=== PATIENT | female | born 1945 | race Caucasian/White ===

== ENCOUNTER 2017-09-13 12:20 | Outpatient (CLI) | payer MEDICARE ==
--- NOTE | 2017-09-13 17:43 | MRI ---
MRI CERVICAL SPINE WITHOUT IV CONTRAST: Date: 09-13-17 History: Right upper extremity radiculopathy. Patient is having neck pain which radiates to left richard e of head. Right hand is tingling. FINDINGS: Visualized base of the brain has a normal MRI appearance. There is what appears to be a small Schmorl's node in the superior endplate of the C7 vertebral body . Normal signal is otherwise demonstrated in the bone marrow. C2-3: There is no disc bulge or disc herniation. Central spinal canal and neural foramina are paten t. C3-4: There is a mild broad based disc osteophyte complex which narrows the ventral subarachnoid spa ce. The left neural foramen is patent, but there is moderate to severe right sided neural foraminal narrowing. C4-5: There is slight loss of intervertebral disc height. There is a mild broad based disc osteophyt e complex slightly narrowing the ventral subarachnoid space. Neural foramina are widely patent. C5-6: There is loss of intervertebral disc height. There is a broad based disc osteophyte complex wh ich results in mild narrowing of the central spinal canal. There is moderate right and mild to moder ate left sided neural foraminal narrowing. C6-7: There is loss of intervertebral disc height. There is a broad based disc osteophyte complex. T his narrows the ventral subarachnoid space. Right neural foramen is patent. There is mild left sided neural foraminal narrowing. C7-T1: There is no disc bulge or disc herniation. Central spinal canal and neural foramina appear pa tent. IMPRESSION: 1. Multilevel degenerative changes in the cervical spine. POS: NEVIN
== END 2017-09-13 12:21 | disposition home or self-care (01) ==
LOC: SCSMRI 12:20
PROVIDERS: ATTEND Orthopaedic Surgery
DX: M47.22 Other spondylosis with radiculopathy, cervical region (principal)
CPT/HCPCS: 72141

== ENCOUNTER 2017-11-05 09:36 | Outpatient (CLI) | payer MEDICARE | END 2017-11-05 09:37 | disposition home or self-care (01) | LOC: BICMRI 09:36 | PROVIDERS: ATTEND Podiatrist | DX: M76.71 Peroneal tendinitis, right leg (principal); S86.311A Strain of muscle(s) and tendon(s) of peroneal muscle group at lower leg level, right leg, initial encounter; M65.861 Other synovitis and tenosynovitis, right lower leg; M76.61 Achilles tendinitis, right leg ==

== ENCOUNTER 2019-04-26 06:33 | Outpatient (CLI) | payer MEDICARE ==
[2019-04-26 15:41] LABS: #Basophils 0.1 thou/uL (0.0-0.2); #Eosinphils 0.1 thou/uL (0.0-0.7); #Lymphocytes 2.4 thou/uL (1.20-3.40); #Monocytes 0.8 thou/uL (0.11-0.59); #Neutrophils 4.6 thou/uL (1.40-6.50); %Basophils 0.7 % (0.0-1.0); %Eosinophils 1.6 % (0.0-10.0); %Lymphocytes 30.3 % (21.0-51.0); %Monocytes 9.4 % (0.0-10.0); %Neutrophils 57.9 % (42.0-75.0); Hemoglobin 12.5 g/dL (12.0-16.0); Mean Corpuscular HGB CONC 33.9 g/dL (32.0-36.0); Mean Corpuscular Hemoglobin 32.7 pg (27.0-31.0); Mean Corpuscular Volume 96.6 fL (78.0-98.0); Mean Platelet Volume 9.2 fL (7.4-10.4); Platelet Count 235 thou/uL (130-400); RBC Distribution Width 11.6 % (11.5-14.5); Red Blood Cell (RBC) Count 3.81 mill/uL (4.20-5.40)
[2019-04-26 15:45] LABS: Bilirubin Negative (Negative); Blood, Urine Negative (Negative); Clarity CLEAR (Clear); Glucose, Urine (Dipstick) Negative (Negative); Leukocyte Negative (Negative); Nitrite Negative (Negative); Protein, Urine (Dipstick) Negative (Neg-Trace); Specific Gravity, Urine 1.021 (1.002-1.036); Urobilinogen 0.2 mg/dL (0.2-1.0); pH, Urine 6.5 (5.0-9.0)
[2019-04-26 16:09] LABS: Anion Gap 13 mmol/L (10-20); BUN (Urea Nitrogen) 29 mg/dL (9.8-20.1); Calc. Creatinine Clearance 0 mL/min (70-130); Calcium 10.5 mg/dL (7.8-10.44); Carbon Dioxide 28 mmol/L (23-31); Chloride 102 mmol/L (98-107); Estimated GFR-MDRD 34; Glucose 105 mg/dL (83-110); Potassium 3.3 mmol/L (3.5-5.1); Sodium 140 mmol/L (136-145)
[2019-04-26 17:12] LABS: Bacteria/HPF None Seen HPF (None Seen); Hyaline Casts/LPF NONE SEEN LPF (0-3 Hyaline); RBC/HPF None Seen HPF (0-3); Renal Epithelial None Seen HPF (0-3); Squamous Epithelial 0-3 HPF (0-3); Transitional Epithelial 0-3 HPF (0-3); WBC/HPF 0-3 HPF (0-3)
== END 2019-04-26 06:34 | disposition home or self-care (01) ==
LOC: LABBT 06:33
PROVIDERS: ATTEND Orthopaedic Surgery
DX: Z01.818 Encounter for other preprocedural examination (principal); T84.090A Other mechanical complication of internal right hip prosthesis, initial encounter
CPT/HCPCS: 80048; 81001; 85025; 93005; 93010

== ENCOUNTER 2019-04-26 14:00 | Inpatient (IN) | payer MEDICARE ==
[2019-04-26 14:24] VITALS: BMI 26.8
[2019-05-04] MEDS ORDERED: Fentanyl 100 MCG/2 ML VIAL ONE (06:28)
[2019-05-04] MEDS ORDERED: Midazolam HCl 2 mg/2 ml Vial ONE (06:28)
[2019-05-04] MEDS ORDERED: Lidocaine 1% (PF) 30 ML VIAL ONE (06:28)
[2019-05-04] MEDS ORDERED: Gentamicin Sulfate 120 MG in Premix Bag 1 BAG IVPB SCH (06:30)
[2019-05-04] MEDS ORDERED: Vancomycin HCl 1 GM in Premix Bag 1 BAG IVPB SCH ×2 (06:30→18:00)
[2019-05-04] MEDS ORDERED: Scopolamine 1.5 mg/72 hour Patch ONE (06:44)
[2019-05-04] MEDS ORDERED: Tranexamic Acid 1,000 MG/10 ML VIAL ONE (06:47)
[2019-05-04] MEDS ORDERED: diphenhydrAMINE 25 MG CAP PO PRN (06:47)
[2019-05-04] MEDS ORDERED: Zolpidem Tartrate 5 MG TAB PO PRN ×2 (06:47→07:45)
[2019-05-04] MEDS ORDERED: Ondansetron PF 4 MG/2 ML Vial IVP PRN (06:47)
[2019-05-04] MEDS ORDERED: Sodium Chloride 0.9% 100 ML ONE (06:47)
[2019-05-04] MEDS ORDERED: Acetaminophen 325 MG TAB PO PRN (06:47)
[2019-05-04] MEDS ORDERED: traMADol HCl 50 MG TAB PO PRN ×2 (06:47→07:45)
[2019-05-04] MEDS ORDERED: Promethazine HCl 25 MG/ML VIAL IM PRN ×3 (06:47→08:25)
[2019-05-04] MEDS ORDERED: Bupivacaine/Epinephrine 0.25% 30 ML VIAL ONE (07:31)
[2019-05-04] MEDS ORDERED: Naloxone HCl 0.4 mg/ml Vial IV PRN (07:45)
[2019-05-04] MEDS ORDERED: diphenhydrAMINE 50 MG/ML VIAL IVP PRN (07:45)
[2019-05-04] MEDS ORDERED: Promethazine HCl 25 MG SUPP PR PRN (07:45)
[2019-05-04] MEDS ORDERED: diphenhydrAMINE 50 MG/ML VIAL IM PRN (07:45)
[2019-05-04] MEDS ORDERED: fentaNYL Citrate/PF 500 MCG, Bupivacaine 10 ML in Sodium Chloride 0.9% 80 ML EPIDURAL SCH (07:45)
[2019-05-04] MEDS ORDERED: Bupivacaine 0.25% 10 ML VIAL EPIDURAL PRN (07:45)
[2019-05-04] MEDS ORDERED: Hydrocerin (Eucerin) Cream 120 gm Jar TOP PRN (07:45)
[2019-05-04] MEDS ORDERED: Naloxone HCl 0.4 mg/ml Vial IVP PRN (07:45)
[2019-05-04] MEDS ORDERED: Ondansetron HCl/PF 4 MG/2 ML Vial IVP PRN (08:25)
[2019-05-04] MEDS ORDERED: Promethazine HCl 25 MG/ML VIAL SLOW IVP PRN (08:25)
[2019-05-04] MEDS ORDERED: PACU-Morphine 4MG/ML VIAL SLOW IVP PRN (08:25)
[2019-05-04] MEDS ORDERED: Hydrochlorothiazide 25 MG TAB PO SCH (09:00)
[2019-05-04] MEDS ORDERED: Bupivacaine 10 ML in Sodium Chloride 0.9% 90 ML EPIDURAL SCH ×2 (11:30→17:30)
--- NOTE | 2019-05-04 12:49 | OP ---
DATE OF PROCEDURE: 05/04/2019 PROCEDURE PERFORMED: Right revision total hip arthroplasty using a Yudith E-liner MDM head, a roman catholic modular head and neck replacement body size 19 with a 14 mm x 155 mm stem. DYNAMITER: Michael Hudson MD ESTIMATED BLOOD LOSS: 400 mL. SPECIMEN: None. DRAIN: None. COMPLICATIONS: None. DESCRIPTION OF PROCEDURE: The patient was taken to the operating room, where general anesthesia was induced, placed in left lateral decubitus position. Right hip was prepped and draped in sterile fashion. She received vancomycin and gentamicin preoperatively. I opened up her old surgical scar extended proximally. I started with a small one. I tried to extract the stent without making a trochanteric osteotomy. I spent a fairly good amount of time, but this unfortunately had failed. I created a trochanteric osteotomy and removed the stem, I removed the cement distally with Calamus revision instruments. I reamed distally up to 14 mm, this allowed me to seat a 14 mm roman catholic modular stem. I then placed the body on. I rebuilt the proximal femur around this body. I did place one prophylactic cable at the area of the osteotomy, so that I would not extend any fracture below that cable. The remainder of the fragments were cabled back to the proximal body. The acetabular liner was removed. The acetabulum was inspected. I placed an E-liner for the MDM in the acetabulum. I used a +20 body with a +5 ceramic head on the femur. This gave good stability throughout range of motion. After the osteotomy was repaired, I repaired the abductors back about the anterior one-third using Ethibond suture through bone and reinforced with Vicryl suture Vicryl. IT band was closed with #2 Vicryl and #2 Quill. Subcutaneous was closed with 0 Quill, and skin was closed with 2-0 Monoderm. Job ID: [id number]
--- NOTE | 2019-05-04 13:36 | RAD ---
2 VIEWS RIGHT HIP: Date: 05/04/19 COMPARISON: 08/01/09. HISTORY: Status post right hip arthroplasty. FINDINGS: 2 views of the right hip show the patient to be status post revision of right hip arthroplasty withou t perihardware lucency or fracture. Air I the soft tissues is from recent surgery. IMPRESSION: Status post right hip arthroplasty without evidence of complication. POS: TPC
[2019-05-04] MEDS: Sodium Chloride 0.9% 1,000 ML IV SCH ×2 (14:13→16:41)
[2019-05-04] MEDS: Aspirin 81 mg Enteric Coated Tablet PO SCH ×2 (14:14→20:24)
[2019-05-04] MEDS: Lisinopril 10 MG TAB PO SCH ×2 (14:14→20:24)
[2019-05-04] MEDS: Fluticasone Propionate Nasal Spray 16 gm Bottle NASAL SCH (14:14)
[2019-05-04] MEDS: Acetaminophen 500 MG TAB PO SCH ×3 (14:14→23:48)
[2019-05-04] MEDS: Loratadine 10 MG TAB PO SCH (14:14)
[2019-05-04] MEDS: traMADol HCl 50 MG TAB PO PRN ×2 (14:18→20:24)
--- NOTE | 2019-05-04 19:16 | PDOC.PN ---
- Subjective Encounter Start Date: 05/04/19 Encounter Start Time: 19:16 Patient seen and examined for med mngt. Follows Dr Yan in [place]. No CP/ SOB. Pain controlled. No fever/chills. No other complaints. No overnight events - Objective MAR Reviewed: Yes Vital Signs & Weight: Vital Signs (12 hours) Temp Pulse Resp BP Pulse Ox 05/04/19 13:30 97.3 F L 70 16 105/54 L 98 Weight Weight 161 lb I&O: 05/03/19 05/04/19 05/05/19 06:59 06:59 06:59 Intake Total 900 Output Total 300 Balance 600 Result Diagrams: 05/05/19 05:24 EKG Reviewed by me: Yes (SR) Phys Exam - Physical Examination Constitutional: NAD Respiratory: no wheezing, no rhonchi Cardiovascular: RRR, no rub Gastrointestinal: soft, non-tender, positive bowel sounds Musculoskeletal: no edema Neurological: moves all 4 limbs Dx/Plan - Plan DVT proph w/SCDs IMPRESSION: HTN Seasonal allergies CKD 3 Hypokalemia PLAN: Hold Lisinopril/HCTZ BMP in AM Cont Flonase Add PRN BP meds Full code. DPOA - spouse Review of Systems - Review of Systems Respiratory: negative: Cough, Dry, Shortness of Breath, Hemoptysis, SOB with Excertion, Pleuritic Pain, Sputum, Wheezing Cardiovascular: negative: chest pain, palpitations, orthopnea, paroxysmal nocturnal dyspnea, edema, light headedness, other - Medications/Allergies Allergies/Adverse Reactions: Allergies Allergy/AdvReac Type Severity Reaction Status Date / Time ciprofloxacin [From Cipro] Allergy Verified 04/26/19 14:26 fentanyl Allergy Verified 04/26/19 14:26 hydrocodone Allergy Verified 04/26/19 14:26 levofloxacin [From Levaquin] Allergy Verified 04/26/19 14:26 Penicillins Allergy Verified 04/26/19 14:26 Medications: Current Medications Acetaminophen (Tylenol) 1,000 mg PO Q6HR [facility] Last Admin: 05/04/19 18:05 Dose: 1,000 mg Aspirin (Ecotrin) 81 mg PO BID [facility] Last Admin: 05/04/19 14:14 Dose: Not Given Bupivacaine HCl (Marcaine) 5 ml EPIDURAL ONE PRN PRN Reason: UNCONTROLLED PAIN Stop: 05/07/19 07:46 Diphenhydramine HCl (Benadryl) 25 mg PO Q3H PRN PRN Reason: Itching Diphenhydramine HCl (Benadryl) 25 mg IM Q3H PRN PRN Reason: Itching Diphenhydramine HCl (Benadryl) 25 mg IVP Q3H PRN PRN Reason: Itching Emollient Cream (Hydrocerin Cream) 0 gm TOP PRN PRN PRN Reason: Itching Ferrous Gluconate (Fergon) 324 mg PO BID[facility] Fluticasone Propionate (Flonase Nasal [place]) 0 gm NASAL DAILY [facility] Last Admin: 05/04/19 14:14 Dose: Not Given Hydrochlorothiazide (Hydrochlorothiazide) 12.5 mg PO DAILY [facility] Last Admin: 05/04/19 14:14 Dose: Not Given Sodium Chloride (Normal Saline 0.9%) 1,000 mls @ 100 mls/hr IV .Q10H [facility] Last Admin: 05/04/19 16:41 Dose: Not Given Vancomycin HCl 1 gm/ Device 200 mls @ 200 mls/hr IVPB 1800 [facility] Stop: 05/04/19 21:00 Last Admin: 05/04/19 18:04 Dose: 200 mls Bupivacaine HCl 10 ml/ Sodium (Chloride) 100 mls @ 8 mls/hr EPIDURAL INF [facility] Iron/Minerals/Multivitamins (Theragran M) 1 tab PO DAILY [facility] Lisinopril (Zestril) 10 mg PO BID [facility] Last Admin: 05/04/19 14:14 Dose: Not Given Loratadine (Claritin) 10 mg PO DAILY [facility] Last Admin: 05/04/19 14:14 Dose: Not Given Miscellaneous Information (Communication Order-Pharmacy) 1 each FS ASDIR [facility] Naloxone HCl (Narcan) 0.2 mg IV Q5MIN PRN PRN Reason: RR <=8 OR OBTUNDED/UNAROUSABLE Naloxone HCl (Narcan) 0.1 mg IVP Q15MIN PRN PRN Reason: URINARY RETENTION Ondansetron HCl (Zofran) 4 mg IVP Q6H PRN PRN Reason: Nausea/Vomiting Promethazine HCl (Phenergan) 12.5 mg IM Q4H PRN PRN Reason: Nausea Promethazine HCl (Phenergan Suppository) 25 mg IN Q4H PRN PRN Reason: Nausea/Vomiting Senna/Docusate Sodium (Senokot S) 2 tab PO BID [facility] Sodium Chloride (Flush - Normal Saline) 10 ml IVF PRN PRN PRN Reason: Saline Flush Tramadol HCl (Ultram) 50 mg PO Q6H PRN PRN Reason: Mild Pain 1-3 Tramadol HCl (Ultram) 100 mg PO Q6H PRN PRN Reason: Moderate Pain 4-6 Last Admin: 05/04/19 14:18 Dose: 100 mg Zolpidem Tartrate (Ambien) 5 mg PO HSPRN PRN PRN Reason: Insomnia
[2019-05-04] MEDS: Fentanyl 5 mcg/Bup 0.075% Cadd 100 ML EPIDURAL SCH (23:49)
[2019-05-05] MEDS: Sodium Chloride 0.9% 1,000 ML IV SCH ×2 (04:35→14:20)
[2019-05-05] MEDS: Ondansetron PF 4 MG/2 ML Vial IVP PRN ×2 (05:09→21:12)
[2019-05-05] MEDS: traMADol HCl 50 MG TAB PO PRN ×2 (05:15→21:08)
[2019-05-05] MEDS: Acetaminophen 500 MG TAB PO SCH ×3 (05:55→18:57)
[2019-05-05 05:58] LABS: Hemoglobin 9.7 g/dL (12.0-16.0); Mean Corpuscular HGB CONC 33.6 g/dL (32.0-36.0); Mean Corpuscular Hemoglobin 32.8 pg (27.0-31.0); Mean Corpuscular Volume 97.5 fL (78.0-98.0); Mean Platelet Volume 9.2 fL (7.4-10.4); Platelet Count 196 thou/uL (130-400); RBC Distribution Width 11.6 % (11.5-14.5); Red Blood Cell (RBC) Count 2.97 mill/uL (4.20-5.40); White Blood Cell (WBC) Count 10.3 thou/uL (4.8-10.8)
[2019-05-05] MEDS ORDERED: Polyethylene Glycol 3350 17 GM Packet PO PRN (07:46)
[2019-05-05 08:27] LABS: Anion Gap 10 mmol/L (10-20); BUN (Urea Nitrogen) 21 mg/dL (9.8-20.1); Calc. Creatinine Clearance 59 mL/min (70-130); Calcium 8.7 mg/dL (7.8-10.44); Carbon Dioxide 25 mmol/L (23-31); Chloride 102 mmol/L (98-107); Estimated GFR-MDRD 55; Glucose 118 mg/dL (83-110); Magnesium 1.6 mg/dL (1.6-2.6); Potassium 3.6 mmol/L (3.5-5.1); Sodium 133 mmol/L (136-145)
[2019-05-05] MEDS ORDERED: Amlodipine 5 MG TAB PO SCH (09:00)
[2019-05-05] MEDS: Multivitamin W/ Minerals 1 TAB PO SCH (09:55)
[2019-05-05] MEDS ORDERED: Lisinopril 10 MG TAB PO SCH ×2 (10:03→10:15)
[2019-05-05] MEDS ORDERED: Hydrochlorothiazide 25 MG TAB PO SCH ×3 (10:03→12:30)
[2019-05-05] MEDS: Fluticasone Propionate Nasal Spray 16 gm Bottle NASAL SCH (10:14)
[2019-05-05] MEDS: Aspirin 81 mg Enteric Coated Tablet PO SCH ×2 (10:15→21:09)
[2019-05-05] MEDS: Ferrous Gluconate 324 MG TAB PO SCH ×2 (10:15→18:57)
[2019-05-05] MEDS: Loratadine 10 MG TAB PO SCH (10:16)
[2019-05-05] MEDS: Hydrochlorothiazide 25 MG TAB PO SCH (12:35)
[2019-05-05] MEDS: Fentanyl 5 mcg/Bup 0.075% Cadd 100 ML EPIDURAL SCH (14:07)
[2019-05-05] MEDS: Lisinopril 10 MG TAB PO SCH (21:08)
[2019-05-05] MEDS: Magnesium Chloride 64 MG TAB PO SCH (21:09)
[2019-05-06] MEDS: Sodium Chloride 0.9% 1,000 ML IV SCH ×3 (01:06→22:36)
[2019-05-06] MEDS: Acetaminophen 500 MG TAB PO SCH ×4 (01:06→18:35)
[2019-05-06] MEDS: diphenhydrAMINE 25 MG CAP PO PRN ×2 (02:46→09:45)
[2019-05-06] MEDS: Fentanyl 5 mcg/Bup 0.075% Cadd 100 ML EPIDURAL SCH ×2 (02:47→15:39)
[2019-05-06 05:34] LABS: Hemoglobin 9.6 g/dL (12.0-16.0); Mean Corpuscular Hemoglobin 33.6 pg (27.0-31.0); Mean Corpuscular Volume 98.6 fL (78.0-98.0); Mean Platelet Volume 10.1 fL (7.4-10.4); Platelet Count 158 thou/uL (130-400); RBC Distribution Width 11.6 % (11.5-14.5); Red Blood Cell (RBC) Count 2.86 mill/uL (4.20-5.40); White Blood Cell (WBC) Count 14.3 thou/uL (4.8-10.8)
[2019-05-06] MEDS: Ferrous Gluconate 324 MG TAB PO SCH ×2 (08:05→18:35)
[2019-05-06] MEDS: Hydrochlorothiazide 25 MG TAB PO SCH (08:05)
[2019-05-06] MEDS: Loratadine 10 MG TAB PO SCH (08:05)
[2019-05-06] MEDS: Multivitamin W/ Minerals 1 TAB PO SCH (08:06)
[2019-05-06] MEDS: Aspirin 81 mg Enteric Coated Tablet PO SCH ×2 (08:07→21:23)
[2019-05-06] MEDS: Magnesium Chloride 64 MG TAB PO SCH ×2 (08:08→21:23)
[2019-05-06] MEDS: Lisinopril 10 MG TAB PO SCH ×2 (08:14→21:23)
[2019-05-06] MEDS: Fluticasone Propionate Nasal Spray 16 gm Bottle NASAL SCH (12:01)
--- NOTE | 2019-05-06 18:46 | PDOC.PN ---
- Subjective Encounter Start Date: 05/06/19 Encounter Start Time: 10:20 Pt seen for followup re: hypertension. Slept well, no complaints. - Objective Vital Signs & Weight: Vital Signs (12 hours) Temp Pulse Resp BP BP Pulse Ox 05/06/19 15:40 98.8 F 83 16 137/70 94 L 05/06/19 12:15 98.4 F 82 12 122/69 93 L 05/06/19 08:35 98.7 F 79 12 134/69 94 L 05/06/19 08:14 150/77 H 94 L Weight Weight 161 lb I&O: 05/05/19 05/06/19 05/07/19 06:59 06:59 06:59 Intake Total 2140 1320 Output Total 950 650 Balance 1190 670 Result Diagrams: 05/06/19 04:25 05/05/19 07:57 Phys Exam - Physical Examination Constitutional: NAD HEENT: moist MMs Neck: supple Respiratory: clear to auscultation bilateral Cardiovascular: RRR Gastrointestinal: soft Neurological: moves all 4 limbs Psychiatric: normal affect Dx/Plan (1) Hyponatremia Code(s): E87.1 - HYPO-OSMOLALITY AND HYPONATREMIA Status: Acute Comment: mild, likely asymptomatic (2) Hypertension Code(s): I10 - ESSENTIAL (PRIMARY) HYPERTENSION Status: Chronic Comment: controlled (3) Chronic kidney disease, stage 3 Code(s): N18.3 - CHRONIC KIDNEY DISEASE, STAGE 3 (MODERATE) Status: Chronic Comment: stable - Plan * . Review of Systems - Review of Systems Cardiovascular: negative: chest pain, palpitations, orthopnea, paroxysmal nocturnal dyspnea, edema, light headedness Gastrointestinal: negative: Nausea, Vomiting, Abdominal Pain, Diarrhea, Constipation, Melena, Hematochezia - Medications/Allergies Allergies/Adverse Reactions: Allergies Allergy/AdvReac Type Severity Reaction Status Date / Time ciprofloxacin [From Cipro] Allergy Verified 04/26/19 14:26 fentanyl Allergy Verified 04/26/19 14:26 hydrocodone Allergy Verified 04/26/19 14:26 levofloxacin [From Levaquin] Allergy Verified 04/26/19 14:26 Penicillins Allergy Verified 04/26/19 14:26 Medications: Current Medications Acetaminophen (Tylenol) 1,000 mg PO Q6HR [facility] Last Admin: 05/06/19 18:35 Dose: 1,000 mg Aspirin (Ecotrin) 81 mg PO BID [facility] Last Admin: 05/06/19 08:07 Dose: 81 mg Bupivacaine HCl (Marcaine) 5 ml EPIDURAL ONE PRN PRN Reason: UNCONTROLLED PAIN Stop: 05/07/19 07:46 Diphenhydramine HCl (Benadryl) 25 mg PO Q3H PRN PRN Reason: Itching Last Admin: 05/06/19 09:45 Dose: 25 mg Diphenhydramine HCl (Benadryl) 25 mg IM Q3H PRN PRN Reason: Itching Diphenhydramine HCl (Benadryl) 25 mg IVP Q3H PRN PRN Reason: Itching Emollient Cream (Hydrocerin Cream) 0 gm TOP PRN PRN PRN Reason: Itching Ferrous Gluconate (Fergon) 324 mg PO BID[facility] Last Admin: 05/06/19 18:35 Dose: 324 mg Fluticasone Propionate (Flonase Nasal [place]) 0 gm NASAL DAILY [facility] Last Admin: 05/06/19 12:01 Dose: 2 spray Hydrochlorothiazide (Hydrochlorothiazide) 12.5 mg PO DAILY [facility] Last Admin: 05/06/19 08:05 Dose: 12.5 mg Sodium Chloride (Normal Saline 0.9%) 1,000 mls @ 100 mls/hr IV .Q10H [facility] Last Admin: 05/06/19 08:03 Dose: 1,000 mls Fentanyl Citrate (Fentanyl/Bupivacaine) 100 mls @ 8 mls/hr EPIDURAL INF [facility] Last Admin: 05/06/19 15:39 Dose: 100 mls Iron/Minerals/Multivitamins (Theragran M) 1 tab PO DAILY [facility] Last Admin: 05/06/19 08:06 Dose: 1 tab Lisinopril (Zestril) 10 mg PO BID [facility] Last Admin: 05/06/19 08:14 Dose: 10 mg Loratadine (Claritin) 10 mg PO DAILY [facility] Last Admin: 05/06/19 08:05 Dose: 10 mg Magnesium Chloride (Slow-Mag) 64 mg PO BID [facility] Last Admin: 05/06/19 08:08 Dose: 64 mg Miscellaneous Information (Communication Order-Pharmacy) 1 each FS ASDIR [facility] Naloxone HCl (Narcan) 0.2 mg IV Q5MIN PRN PRN Reason: RR <=8 OR OBTUNDED/UNAROUSABLE Naloxone HCl (Narcan) 0.1 mg IVP Q15MIN PRN PRN Reason: URINARY RETENTION Ondansetron HCl (Zofran) 4 mg IVP Q6H PRN PRN Reason: Nausea/Vomiting Last Admin: 05/05/19 21:12 Dose: 4 mg Polyethylene Glycol (Miralax) 17 gm PO DAILY PRN PRN Reason: Constipation Last Admin: 05/05/19 21:40 Dose: 17 gm Promethazine HCl (Phenergan) 12.5 mg IM Q4H PRN PRN Reason: Nausea Last Admin: 05/05/19 10:12 Dose: 12.5 mg Promethazine HCl (Phenergan Suppository) 25 mg HI Q4H PRN PRN Reason: Nausea/Vomiting Senna/Docusate Sodium (Senokot S) 2 tab PO BID [facility] Sodium Chloride (Flush - Normal Saline) 10 ml IVF PRN PRN PRN Reason: Saline Flush Tramadol HCl (Ultram) 50 mg PO Q6H PRN PRN Reason: Mild Pain 1-3 Tramadol HCl (Ultram) 100 mg PO Q6H PRN PRN Reason: Moderate Pain 4-6 Last Admin: 05/05/19 21:08 Dose: 100 mg Zolpidem Tartrate (Ambien) 5 mg PO HSPRN PRN PRN Reason: Insomnia
[2019-05-06] MEDS: traMADol HCl 50 MG TAB PO PRN (21:24)
[2019-05-06] MEDS ORDERED: Senokot S 8.6-50 MG TAB PO SCH (21:45)
[2019-05-07] MEDS: Acetaminophen 500 MG TAB PO SCH ×2 (00:17→05:04)
[2019-05-07] MEDS: Fentanyl 5 mcg/Bup 0.075% Cadd 100 ML EPIDURAL SCH (04:51)
[2019-05-07 05:29] LABS: Mean Corpuscular Hemoglobin 32.8 pg (27.0-31.0); Mean Corpuscular Volume 99.2 fL (78.0-98.0); Mean Platelet Volume 8.6 fL (7.4-10.4); Platelet Count 185 thou/uL (130-400); RBC Distribution Width 11.6 % (11.5-14.5); Red Blood Cell (RBC) Count 2.74 mill/uL (4.20-5.40); White Blood Cell (WBC) Count 9.9 thou/uL (4.8-10.8)
[2019-05-07] MEDS: Sodium Chloride 0.9% 1,000 ML IV SCH ×2 (05:53→16:09)
[2019-05-07] MEDS: Hydrochlorothiazide 25 MG TAB PO SCH (08:41)
[2019-05-07] MEDS: Lisinopril 10 MG TAB PO SCH ×2 (08:41→20:30)
[2019-05-07] MEDS: Aspirin 81 mg Enteric Coated Tablet PO SCH ×2 (08:41→20:29)
[2019-05-07] MEDS: Loratadine 10 MG TAB PO SCH (08:41)
[2019-05-07] MEDS: Fluticasone Propionate Nasal Spray 16 gm Bottle NASAL SCH (08:41)
[2019-05-07] MEDS: Ferrous Gluconate 324 MG TAB PO SCH ×2 (08:41→17:21)
[2019-05-07] MEDS: Magnesium Chloride 64 MG TAB PO SCH ×2 (08:41→20:31)
[2019-05-07] MEDS: Senokot S 8.6-50 MG TAB PO SCH ×2 (08:42→20:29)
[2019-05-07] MEDS: Multivitamin W/ Minerals 1 TAB PO SCH (08:45)
[2019-05-07] MEDS ORDERED: Acetaminophen/Codeine 30-300mg Tablet PO PRN (10:12)
[2019-05-07] MEDS: Acetaminophen/Codeine 30-300mg Tablet PO PRN ×2 (11:27→15:33)
[2019-05-07] MEDS: traMADol HCl 50 MG TAB PO PRN (14:38)
--- NOTE | 2019-05-07 16:54 | PDOC.PN ---
- Subjective Encounter Start Date: 05/07/19 Encounter Start Time: 10:00 Pt seen for followup re: hypertension. No complaints. - Objective Vital Signs & Weight: Vital Signs (12 hours) Temp Pulse Resp BP BP Pulse Ox 05/07/19 15:14 98.9 F 84 16 147/71 H 93 L 05/07/19 10:53 98.4 F 87 16 125/68 05/07/19 07:44 98.6 F 75 16 120/68 94 L Weight Weight 161 lb I&O: 05/06/19 05/07/19 05/08/19 06:59 06:59 06:59 Intake Total 1320 450 360 Output Total 650 1500 Balance 670 -1050 360 Result Diagrams: 05/07/19 05:12 05/05/19 07:57 Phys Exam - Physical Examination Constitutional: NAD HEENT: sclera anicteric Neck: no JVD Respiratory: clear to auscultation bilateral Cardiovascular: RRR, no rub Gastrointestinal: soft Neurological: moves all 4 limbs Psychiatric: normal affect Dx/Plan (1) Hypertension Code(s): I10 - ESSENTIAL (PRIMARY) HYPERTENSION Status: Chronic Comment: controlled (2) Chronic kidney disease, stage 3 Code(s): N18.3 - CHRONIC KIDNEY DISEASE, STAGE 3 (MODERATE) Status: Chronic Comment: stable - Plan * . Review of Systems - Review of Systems Cardiovascular: negative: chest pain, palpitations, orthopnea, paroxysmal nocturnal dyspnea, edema, light headedness Gastrointestinal: negative: Nausea, Vomiting, Abdominal Pain, Diarrhea, Constipation, Melena, Hematochezia - Medications/Allergies Allergies/Adverse Reactions: Allergies Allergy/AdvReac Type Severity Reaction Status Date / Time ciprofloxacin [From Cipro] Allergy Verified 04/26/19 14:26 fentanyl Allergy Verified 04/26/19 14:26 hydrocodone Allergy Verified 04/26/19 14:26 levofloxacin [From Levaquin] Allergy Verified 04/26/19 14:26 Penicillins Allergy Verified 04/26/19 14:26 Medications: Current Medications Acetaminophen/Codeine Phosphate (Tylenol #3) 1 tab PO Q4H PRN PRN Reason: Mild Pain (1-3) Acetaminophen/Codeine Phosphate (Tylenol #3) 2 tab PO Q4H PRN PRN Reason: Moderate Pain (4-6) Last Admin: 05/07/19 15:33 Dose: 2 tab Aspirin (Ecotrin) 81 mg PO BID [facility] Last Admin: 05/07/19 08:41 Dose: 81 mg Celecoxib (Celebrex) 200 mg PO BID [facility] Diphenhydramine HCl (Benadryl) 25 mg PO Q3H PRN PRN Reason: Itching Last Admin: 05/06/19 09:45 Dose: 25 mg Diphenhydramine HCl (Benadryl) 25 mg IM Q3H PRN PRN Reason: Itching Diphenhydramine HCl (Benadryl) 25 mg IVP Q3H PRN PRN Reason: Itching Emollient Cream (Hydrocerin Cream) 0 gm TOP PRN PRN PRN Reason: Itching Ferrous Gluconate (Fergon) 324 mg PO BID[facility] Last Admin: 05/07/19 08:41 Dose: 324 mg Fluticasone Propionate (Flonase Nasal [place]) 0 gm NASAL DAILY [facility] Last Admin: 05/07/19 08:41 Dose: 2 spray Hydrochlorothiazide (Hydrochlorothiazide) 12.5 mg PO DAILY [facility] Last Admin: 05/07/19 08:41 Dose: 12.5 mg Sodium Chloride (Normal Saline 0.9%) 1,000 mls @ 100 mls/hr IV .Q10H [facility] Last Admin: 05/07/19 16:09 Dose: Not Given Fentanyl Citrate (Fentanyl/Bupivacaine) 100 mls @ 8 mls/hr EPIDURAL INF [facility] Last Admin: 05/07/19 04:51 Dose: 100 mls Iron/Minerals/Multivitamins (Theragran M) 1 tab PO DAILY [facility] Last Admin: 05/07/19 08:45 Dose: 1 tab Lisinopril (Zestril) 10 mg PO BID [facility] Last Admin: 05/07/19 08:41 Dose: 10 mg Loratadine (Claritin) 10 mg PO DAILY [facility] Last Admin: 05/07/19 08:41 Dose: 10 mg Magnesium Chloride (Slow-Mag) 64 mg PO BID [facility] Last Admin: 05/07/19 08:41 Dose: 64 mg Miscellaneous Information (Communication Order-Pharmacy) 1 each FS ASDIR [facility] Naloxone HCl (Narcan) 0.2 mg IV Q5MIN PRN PRN Reason: RR <=8 OR OBTUNDED/UNAROUSABLE Naloxone HCl (Narcan) 0.1 mg IVP Q15MIN PRN PRN Reason: URINARY RETENTION Ondansetron HCl (Zofran) 4 mg IVP Q6H PRN PRN Reason: Nausea/Vomiting Last Admin: 05/05/19 21:12 Dose: 4 mg Polyethylene Glycol (Miralax) 17 gm PO DAILY PRN PRN Reason: Constipation Last Admin: 05/05/19 21:40 Dose: 17 gm Promethazine HCl (Phenergan) 12.5 mg IM Q4H PRN PRN Reason: Nausea Last Admin: 05/05/19 10:12 Dose: 12.5 mg Promethazine HCl (Phenergan Suppository) 25 mg CO Q4H PRN PRN Reason: Nausea/Vomiting Senna/Docusate Sodium (Senokot S) 2 tab PO BID [facility] Last Admin: 05/07/19 08:42 Dose: 2 tab Sodium Chloride (Flush - Normal Saline) 10 ml IVF PRN PRN PRN Reason: Saline Flush Tramadol HCl (Ultram) 50 mg PO Q6H PRN PRN Reason: Mild Pain 1-3 Tramadol HCl (Ultram) 100 mg PO Q6H PRN PRN Reason: Moderate Pain 4-6 Last Admin: 05/07/19 14:38 Dose: 100 mg Zolpidem Tartrate (Ambien) 5 mg PO HSPRN PRN PRN Reason: Insomnia
[2019-05-07] MEDS: diphenhydrAMINE 25 MG CAP PO PRN (20:28)
[2019-05-07] MEDS: CeleCOXIB 100 MG CAP PO SCH (20:29)
[2019-05-08] MEDS: Sodium Chloride 0.9% 1,000 ML IV SCH ×2 (03:09→11:24)
[2019-05-08] MEDS: traMADol HCl 50 MG TAB PO PRN ×2 (03:21→14:31)
[2019-05-08 05:27] LABS: Hemoglobin 9.4 g/dL (12.0-16.0); Mean Corpuscular HGB CONC 33.1 g/dL (32.0-36.0); Mean Corpuscular Volume 99.8 fL (78.0-98.0); Mean Platelet Volume 8.4 fL (7.4-10.4); Platelet Count 245 thou/uL (130-400); RBC Distribution Width 11.7 % (11.5-14.5); Red Blood Cell (RBC) Count 2.86 mill/uL (4.20-5.40); White Blood Cell (WBC) Count 9.4 thou/uL (4.8-10.8)
[2019-05-08] MEDS: Hydrochlorothiazide 25 MG TAB PO SCH (08:16)
[2019-05-08] MEDS: Aspirin 81 mg Enteric Coated Tablet PO SCH (08:17)
[2019-05-08] MEDS: CeleCOXIB 100 MG CAP PO SCH (08:17)
[2019-05-08] MEDS: Lisinopril 10 MG TAB PO SCH (08:17)
[2019-05-08] MEDS: Loratadine 10 MG TAB PO SCH (08:17)
[2019-05-08] MEDS: Senokot S 8.6-50 MG TAB PO SCH (08:18)
[2019-05-08] MEDS: Ferrous Gluconate 324 MG TAB PO SCH (08:18)
[2019-05-08] MEDS: Magnesium Chloride 64 MG TAB PO SCH (08:19)
[2019-05-08] MEDS: Multivitamin W/ Minerals 1 TAB PO SCH (08:19)
[2019-05-08] MEDS: Fluticasone Propionate Nasal Spray 16 gm Bottle NASAL SCH (08:21)
[2019-05-08] MEDS: Ondansetron PF 4 MG/2 ML Vial IVP PRN (10:06)
[2019-05-08 15:33] VITALS: BP 150/75; TEMP 98.8
[2019-05-15] MEDS ORDERED: Senokot S 8.6-50 MG TAB PO SCH (09:00)
== END 2019-05-08 16:20 | disposition home or self-care (01) | DRG 467 ==
LOC: SJJU 05-04 05:47 → SURG A 05-04 13:09
PROVIDERS: ADMIT Orthopaedic Surgery; ATTEND Orthopaedic Surgery
PROC: 0SR90JZ Replacement of Right Hip Joint with Synthetic Substitute, Open Approach (ICD-10-PCS; principal; 2019-05-04)
PROC: 0SP90JZ Removal of Synthetic Substitute from Right Hip Joint, Open Approach (ICD-10-PCS; 2019-05-04)
DX: T84.010A Broken internal right hip prosthesis, initial encounter (principal); E87.1 Hypo-osmolality and hyponatremia; I12.9 Hypertensive chronic kidney disease with stage 1 through stage 4 chronic kidney disease, or unspecified chronic kidney disease; N18.3 Chronic kidney disease, stage 3 (moderate); J30.2 Other seasonal allergic rhinitis; Z96.641 Presence of right artificial hip joint; E87.6 Hypokalemia; Z90.49 Acquired absence of other specified parts of digestive tract; Z79.899 Other long term (current) drug therapy; Z88.0 Allergy status to penicillin; Z88.8 Allergy status to other drugs, medicaments and biological substances; Z88.1 Allergy status to other antibiotic agents
CPT/HCPCS: 36415; 80048; 83735; 85027; 86850; 86900; 86901; 87070; 87081; 87205; C1769; C1776; J1580; J2001; J2250; J2405; J2550; J3010; J3370; J3490; Q0163

== ENCOUNTER 2019-08-21 13:48 | Emergency (ER) | payer MEDICARE ==
--- NOTE | 2019-08-21 14:41 | CT ---
EXAM: CT brain without contrast HISTORY: Fall with head injury COMPARISON: None TECHNIQUE: Multiple contiguous axial images were obtained and a CT of the brain without contrast. FINDINGS: There are scattered hypodensities in the subcortical and periventricular white matter consi stent with small vessel ischemic disease. There is no evidence of hydrocephalus, intracranial hemorrhage, or extra-axial fluid collection. The calvarium and overlying soft tissues are unremarkable. The visualized paranasal sinuses and masto id air cells are well aerated. IMPRESSION: No evidence of acute intracranial abnormality
== END 2019-08-21 15:29 | disposition home or self-care (01) ==
LOC: ERS 13:48
DX: S00.93XA Contusion of unspecified part of head, initial encounter (principal); D50.9 Iron deficiency anemia, unspecified; I10 Essential (primary) hypertension; Z79.899 Other long term (current) drug therapy; W22.8XXA Striking against or struck by other objects, initial encounter
CPT/HCPCS: 70450

== ENCOUNTER 2019-10-09 06:09 | Outpatient (CLI) | payer MEDICARE ==
[2019-10-09 14:49] LABS: #Eosinphils 0.2 thou/uL (0.0-0.7); #Lymphocytes 1.7 thou/uL (1.20-3.40); #Monocytes 0.6 thou/uL (0.11-0.59); #Neutrophils 4.4 thou/uL (1.40-6.50); %Basophils 0.6 % (0.0-1.0); %Eosinophils 2.5 % (0.0-10.0); %Lymphocytes 24.3 % (21.0-51.0); %Neutrophils 64.6 % (42.0-75.0); Hemoglobin 12.6 g/dL (12.0-16.0); Mean Corpuscular HGB CONC 33.5 g/dL (32.0-36.0); Mean Corpuscular Hemoglobin 30.4 pg (27.0-31.0); Mean Platelet Volume 9.3 fL (7.4-10.4); Platelet Count 216 thou/uL (130-400); RBC Distribution Width 14.5 % (11.5-14.5); Red Blood Cell (RBC) Count 4.13 mill/uL (4.20-5.40); White Blood Cell (WBC) Count 6.9 thou/uL (4.8-10.8)
[2019-10-09 15:07] LABS: Anion Gap 12 mmol/L (10-20); BUN (Urea Nitrogen) 19 mg/dL (9.8-20.1); Calc. Creatinine Clearance 0 mL/min (70-130); Calcium 10.4 mg/dL (7.8-10.44); Carbon Dioxide 28 mmol/L (23-31); Chloride 104 mmol/L (98-107); Estimated GFR-MDRD 50; Glucose 90 mg/dL (83-110); Potassium 3.8 mmol/L (3.5-5.1); Sodium 140 mmol/L (136-145)
== END 2019-10-09 06:10 | disposition home or self-care (01) ==
LOC: LABBT 06:09
PROVIDERS: ATTEND Orthopaedic Surgery
DX: Z01.812 Encounter for preprocedural laboratory examination (principal); T84.84XA Pain due to internal orthopedic prosthetic devices, implants and grafts, initial encounter
CPT/HCPCS: 80048; 85025

== ENCOUNTER 2019-10-13 09:02 | Day surgery (SDC) | payer MEDICARE ==
[2019-10-09 13:47] VITALS: BMI 25.9
[2019-10-13] MEDS ORDERED: Levofloxacin 500 mg/D5W 100 ml Premix Bag ONE (09:44)
[2019-10-13] MEDS ORDERED: Fentanyl 100 MCG/2 ML VIAL ONE (10:21)
[2019-10-13] MEDS ORDERED: Morphine 10 MG/ML VIAL ONE (11:43)
[2019-10-13] MEDS ORDERED: Gentamicin 80 MG/2 ML VIAL ONE ×2 (11:44→11:45)
[2019-10-13] MEDS ORDERED: Rocuronium Bromide 10 MG/ML (10ML VIAL) ONE (11:53)
[2019-10-13] MEDS ORDERED: Metoclopramide HCl 10 MG/2 ML VIAL ONE (11:53)
[2019-10-13] MEDS ORDERED: Ondansetron PF 4 MG/2 ML Vial ONE (11:53)
[2019-10-13] MEDS ORDERED: diphenhydrAMINE 50 MG/ML VIAL ONE (11:53)
[2019-10-13] MEDS ORDERED: PROPOFOL 200 MG/20 ML VIAL ONE (11:53)
[2019-10-13] MEDS ORDERED: Dexamethasone 20 MG/5 ML VIAL ONE (11:53)
[2019-10-13] MEDS ORDERED: Glycopyrrolate 0.2 MG/ML 5 ML SYRINGE ONE (11:53)
[2019-10-13] MEDS ORDERED: Lidocaine 1% PF 5 ML VIAL ONE (11:53)
[2019-10-13] MEDS ORDERED: Bupivacaine HCl 0.5%/Epinephrine 1:200,000/PF 30 ml Vial ONE (11:54)
[2019-10-13] MEDS ORDERED: Acetaminophen/Codeine 30-300mg Tablet ONE (14:14)
--- NOTE | 2019-10-15 21:30 | OP ---
DATE OF PROCEDURE: 10/13/2019 PREOPERATIVE DIAGNOSIS: Painful broken cable in the right hip. POSTOPERATIVE DIAGNOSIS: Painful broken cable in the right hip. PROCEDURE PERFORMED: Open removal of hardware from the right hip. ANTIQUE COLLECTOR: Nacho. BLOOD LOSS: Less than 100. SPECIMEN: None. DRAIN: None. COMPLICATION: None. DESCRIPTION OF PROCEDURE: The patient was taken to the operating room, where general anesthesia induced. She was placed in left lateral decubitus position. She received vancomycin and gentamicin preoperatively. Right hip and leg were prepped and draped in usual sterile fashion. I opened up just a small portion of the old scar, dissection carried down to where the IT band should be. I recreated the IT band, dissected through the IT band, identified the broken cable. This was excised from the wound. Irrigation performed. I put the hip through a range of motion, did not feel any further popping. IT band was repaired with #1 Vicryl, subcu was closed with 2-0 Vicryl, skin was closed with Prolene. Sterile dressings applied. Job ID: [id number]
== END 2019-10-13 14:50 | disposition home or self-care (01) ==
LOC: SDC 09:02
PROVIDERS: ATTEND Orthopaedic Surgery
PROC: 0SP904Z Removal of Internal Fixation Device from Right Hip Joint, Open Approach (ICD-10-PCS; principal; 2019-10-13)
DX: T84.84XA Pain due to internal orthopedic prosthetic devices, implants and grafts, initial encounter (principal); T84.010A Broken internal right hip prosthesis, initial encounter; I10 Essential (primary) hypertension; Z79.899 Other long term (current) drug therapy; Z88.0 Allergy status to penicillin; Z88.1 Allergy status to other antibiotic agents; Z88.5 Allergy status to narcotic agent
CPT/HCPCS: J0670; J1100; J1200; J1580; J1956; J2001; J2270; J2405; J2704; J2765; J3010; J3370

== ENCOUNTER 2020-01-05 08:38 | Outpatient (CLI) | payer MEDICARE ==
[2020-01-05 13:54] LABS: #Basophils 0.1 thou/uL (0.0-0.2); #Eosinphils 0.2 thou/uL (0.0-0.7); #Lymphocytes 1.8 thou/uL (1.20-3.40); #Monocytes 0.7 thou/uL (0.11-0.59); #Neutrophils 3.7 thou/uL (1.40-6.50); %Basophils 1.6 % (0.0-1.0); %Eosinophils 2.4 % (0.0-10.0); %Lymphocytes 28.5 % (21.0-51.0); %Monocytes 10.4 % (0.0-10.0); %Neutrophils 57.2 % (42.0-75.0); Hemoglobin 12.8 g/dL (12.0-16.0); Mean Corpuscular HGB CONC 33.8 g/dL (32.0-36.0); Mean Corpuscular Hemoglobin 32.3 pg (27.0-31.0); Mean Corpuscular Volume 95.5 fL (78.0-98.0); Mean Platelet Volume 9.2 fL (7.4-10.4); Platelet Count 225 thou/uL (130-400); RBC Distribution Width 11.8 % (11.5-14.5); Red Blood Cell (RBC) Count 3.97 mill/uL (4.20-5.40); White Blood Cell (WBC) Count 6.4 thou/uL (4.8-10.8)
[2020-01-05 14:13] LABS: Anion Gap 13 mmol/L (10-20); BUN (Urea Nitrogen) 18 mg/dL (9.8-20.1); Calc. Creatinine Clearance 0 mL/min (70-130); Carbon Dioxide 26 mmol/L (23-31); Chloride 104 mmol/L (98-107); Estimated GFR-MDRD 51; Glucose 106 mg/dL (83-110); Potassium 3.8 mmol/L (3.5-5.1); Sodium 139 mmol/L (136-145)
== END 2020-01-05 08:39 | disposition home or self-care (01) ==
LOC: LABBT 08:38
PROVIDERS: ATTEND Orthopaedic Surgery
DX: Z01.812 Encounter for preprocedural laboratory examination (principal); T84.010A Broken internal right hip prosthesis, initial encounter; S72.001K Fracture of unspecified part of neck of right femur, subsequent encounter for closed fracture with nonunion
CPT/HCPCS: 80048; 85025

== ENCOUNTER 2020-01-05 13:15 | Inpatient (IN) | payer MEDICARE ==
[2020-01-05 13:29] VITALS: BMI 26.2
[2020-01-09] MEDS ORDERED: Sodium Chloride 0.9% 100 ML ONE (09:44)
[2020-01-09] MEDS ORDERED: Tranexamic Acid 1,000 MG/10 ML VIAL ONE (09:44)
[2020-01-09] MEDS ORDERED: Midazolam HCl 2 mg/2 ml Vial ONE (10:06)
[2020-01-09] MEDS ORDERED: Fentanyl 100 MCG/2 ML VIAL ONE (10:35)
[2020-01-09] MEDS ORDERED: diphenhydrAMINE 25 MG CAP PO PRN (11:02)
[2020-01-09] MEDS ORDERED: Promethazine HCl 25 MG/ML VIAL IM PRN ×3 (11:02→13:56)
[2020-01-09] MEDS ORDERED: Acetaminophen 325 MG TAB PO PRN (11:02)
[2020-01-09] MEDS ORDERED: traMADol HCl 50 MG TAB PO PRN ×3 (11:02→11:15)
[2020-01-09] MEDS ORDERED: Ondansetron PF 4 MG/2 ML Vial IVP PRN ×2 (11:02→11:15)
[2020-01-09] MEDS ORDERED: Zolpidem Tartrate 5 MG TAB PO PRN ×2 (11:02→11:15)
[2020-01-09] MEDS ORDERED: Fentanyl 100 MCG/2 ML VIAL SLOW IVP PRN ×2 (11:02)
[2020-01-09] MEDS ORDERED: Acetaminophen/Codeine 30-300mg Tablet PO PRN (11:04)
[2020-01-09] MEDS ORDERED: Promethazine HCl 25 MG SUPP PR PRN (11:15)
[2020-01-09] MEDS ORDERED: Naloxone HCl 0.4 mg/ml Vial IV PRN (11:15)
[2020-01-09] MEDS ORDERED: fentaNYL Citrate/PF 500 MCG, Bupivacaine 10 ML in Sodium Chloride 0.9% 80 ML EPIDURAL SCH (11:15)
[2020-01-09] MEDS ORDERED: Naloxone HCl 0.4 mg/ml Vial IVP PRN (11:15)
[2020-01-09] MEDS ORDERED: diphenhydrAMINE 50 MG/ML VIAL IM PRN (11:15)
[2020-01-09] MEDS ORDERED: Hydrocerin (Eucerin) Cream 120 gm Jar TOP PRN (11:15)
[2020-01-09] MEDS ORDERED: Bupivacaine 0.25% 10 ML VIAL EPIDURAL PRN (11:15)
[2020-01-09] MEDS ORDERED: HYDROcodone/Acetaminophen 5/325 mg Tablet PO PRN (11:15)
[2020-01-09] MEDS ORDERED: Bupivacaine 0.25% HCL 30 ML VIAL ONE (11:47)
[2020-01-09] MEDS ORDERED: Ketorolac Tromethamine 30 MG/ML VIAL IVP SCH (12:00)
[2020-01-09] MEDS ORDERED: Loratadine 10 MG TAB PO PRN (12:15)
[2020-01-09] MEDS ORDERED: Ibuprofen 200 MG TAB PO PRN (12:16)
[2020-01-09] MEDS ORDERED: Lidocaine 1% PF 5 ML VIAL ONE (13:25)
[2020-01-09] MEDS ORDERED: Glycopyrrolate 0.2 MG/ML 5 ML SYRINGE ONE (13:25)
[2020-01-09] MEDS ORDERED: Rocuronium Bromide 10 MG/ML (10ML VIAL) ONE (13:25)
[2020-01-09] MEDS ORDERED: Ondansetron PF 4 MG/2 ML Vial ONE (13:25)
[2020-01-09] MEDS ORDERED: PROPOFOL 200 MG/20 ML VIAL ONE (13:25)
[2020-01-09] MEDS ORDERED: Lidocaine 1.5% w/Epi 1:200K 30 ML VIAL (Epid Use) ONE (13:25)
[2020-01-09] MEDS ORDERED: EPHEDRINE 25 MG/5 ML SYRINGE ONE (13:25)
[2020-01-09] MEDS ORDERED: Dexamethasone 20 MG/5 ML VIAL ONE (13:25)
[2020-01-09] MEDS ORDERED: Meperidine HCl/PF 25 MG/ML VIAL SLOW IVP PRN (13:56)
[2020-01-09] MEDS ORDERED: Ondansetron HCl/PF 4 MG/2 ML Vial IVP PRN (13:56)
[2020-01-09] MEDS ORDERED: Promethazine HCl 25 MG/ML VIAL SLOW IVP PRN (13:56)
[2020-01-09] MEDS ORDERED: Ketorolac Tromethamine 30 MG/ML VIAL ONE (14:22)
--- NOTE | 2020-01-09 14:52 | RAD ---
XR Femur Rt 2 View STANDARD HISTORY: Hardware removal with allograft. ORIF right femur FINDINGS: 5 spot fluoroscopic intraoperative images of the right femur demonstrate changes of right hip arthrop lasty and placement of plate and screws along the shaft of the right femur.
--- NOTE | 2020-01-09 15:55 | OP ---
DATE OF PROCEDURE: 01/09/2020 This is Andrea Kim PA-C dictating a report for Justin Real MD. 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 OPERATIVE PROCEDURE: Explantation of hardware, right hip, with open reduction and internal fixation of right hip periprosthetic greater trochanteric fracture. SURGEON: Justin Real MD BIOINFORMATICIAN: Andrea Kim PA-C ANESTHESIA: General via endotracheal tube, augmented with indwelling epidural. COMPONENTS USED: Synthes 4.5 mm limited contact plate proximal femur hook, 12 holes. 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 Serous effusion at the trochanteric bursa under the iliotibial band. ESTIMATED BLOOD LOSS: 300. DRAINS: None. SPECIMENS: Bursal, sent for microscopy. COMPLICATION: None. COUNTS: Correct. INDICATIONS FOR SURGERY: Genna is a 74-year-old female who underwent a revision arthroplasty of the right hip approximately 6 months ago. She fell within the last 3 to 4 months, resulting in a greater trochanteric periprosthetic fracture. She has had progressive discomfort with standing and walking, and radiographs had demonstrated widening of her trochanteric osteotomy. She has elected to proceed with open reduction and internal fixation of the trochanter for stabilization and amelioration of pain. PROCEDURE IN DETAIL: After informed consent was obtained in the preoperative holding area, the patient was taken to the operative suite and positioned appropriately on the operating table. General anesthesia was induced and an endotracheal tube was placed and secured. Once adequate anesthesia was obtained, the patient was placed in the left lateral decubitus position. The right lower extremity was then prepped and draped in the usual sterile fashion after a Alonso was placed. Prior to incision, a multidisciplinary time-out was called. All members of the surgical team agreed unanimously. Incision was then made using the patient's old incision over the proximal thigh on the right. Subcutaneous layer was divided with Bovie electrocautery. Local bleeding was controlled with direct pressure and Bovie electrocautery. We encountered the IT band, it was then incised with the cautery. We had a serous fluid rupture that did not appear to communicate with the deeper structures. We then found the 1st cable, which was broken, dissected it out and encountered a pseudocapsule, which did communicate with the hip joint itself. We had serous fluid come out, which was clear and healthy-looking with a positive string sign. The cable was removed as well as the other 2 cables, which had not broken, and we then sized the patient for the appropriate periarticular LCB plate. We did a 2-incision technique, making further distal incision to allow for the limited contact plate distal fixation. Fluoroscopy was brought in the field. Our plate position was approximated and we then applied it, compressed x2, and used approximately 6 trans-bicortical nonlocking screws distally and 1 locking screw proximally. We were happy with our near anatomic reduction and the entire wound was copiously irrigated with normal saline. A 3 L of pulsatile lavage was carried out. Primary closure was accomplished in the IT band both proximally and distally with #2 Vicryl, 0 Vicryl was then used to reapproximate subcutaneous and subfascial layers, 2-0 Vicryl interrupted in inverted mattress was used, and 2-0 Prolene in a running horizontal mattress was used to reapproximate the skin. Sterile dressing was applied. Procedure terminated without complication. The hip remained stable throughout. The patient will be allowed to be weightbearing as tolerated with hip precautions. Job ID: [id number]
[2020-01-09] MEDS: diphenhydrAMINE 50 MG/ML VIAL IVP PRN ×2 (16:35→20:43)
[2020-01-09] MEDS: Ketorolac Tromethamine 30 MG/ML VIAL IM SCH (17:15)
[2020-01-09] MEDS ORDERED: CEFAZOLIN 2 GM in Premix Bag 1 BAG IVPB SCH (18:00)
[2020-01-09 19:11] LABS: #Lymphocytes 0.5 thou/uL (1.20-3.40); #Monocytes 0.3 thou/uL (0.11-0.59); #Neutrophils 10.2 thou/uL (1.40-6.50); %Eosinophils 0.1 % (0.0-10.0); %Lymphocytes 4.9 % (21.0-51.0); %Monocytes 2.8 % (0.0-10.0); %Neutrophils 92.3 % (42.0-75.0); Hemoglobin 11.2 g/dL (12.0-16.0); Mean Corpuscular HGB CONC 33.8 g/dL (32.0-36.0); Mean Corpuscular Volume 97.9 fL (78.0-98.0); Platelet Count 198 thou/uL (130-400); RBC Distribution Width 11.9 % (11.5-14.5); Red Blood Cell (RBC) Count 3.39 mill/uL (4.20-5.40); White Blood Cell (WBC) Count 11.1 thou/uL (4.8-10.8)
[2020-01-09 19:34] LABS: ALT (SGPT) 16 U/L (8-55); AST (SGOT) 33 U/L (5-34); Albumin 3.9 g/dL (3.4-4.8); Alkaline Phosphatase 59 U/L (40-110); Anion Gap 14 mmol/L (10-20); BUN (Urea Nitrogen) 20 mg/dL (9.8-20.1); Bilirubin, Total 0.4 mg/dL (0.2-1.2); Calc. Creatinine Clearance 56 mL/min (70-130); Calcium 8.8 mg/dL (7.8-10.44); Carbon Dioxide 24 mmol/L (23-31); Chloride 105 mmol/L (98-107); Estimated GFR-MDRD 53; Glucose 146 mg/dL (83-110); Protein, Total 5.9 g/dL (6.0-8.3); Sodium 139 mmol/L (136-145)
[2020-01-09] MEDS: Sodium Chloride 0.9% 1,000 ML IV SCH (19:42)
[2020-01-09] MEDS: Aspirin 81 mg Enteric Coated Tablet PO SCH (20:37)
[2020-01-09] MEDS: CEFAZOLIN 2 GM in Premix Bag 1 BAG IVPB SCH (20:38)
[2020-01-09] MEDS: Famotidine/PF 20 mg/2ml Vial SLOW IVP SCH (20:39)
[2020-01-09] MEDS: Lisinopril 10 MG TAB PO SCH (21:30)
[2020-01-10] MEDS: Ketorolac Tromethamine 30 MG/ML VIAL IM SCH ×2 (00:17→06:10)
[2020-01-10] MEDS: Sodium Chloride 0.9% 1,000 ML IV SCH ×4 (00:19→16:53)
--- NOTE | 2020-01-10 03:58 | CON ---
DATE OF CONSULTATION: 01/09/2020 TIME OF ASSESSMENT: 1800 hours. REASON FOR CONSULTATION: Medical management. HISTORY OF PRESENT ILLNESS: Ms. Genna Marcano is a 74-year-old woman, who is status post open reduction and internal fixation of right hip periprosthetic greater trochanter fracture. She apparently had a fall 3 to 4 months ago with worsening pain and imaging demonstrated peritrochanteric fracture. The patient has had the procedure done this morning. She has not had anything to eat in 24 hours. Shortly after her tray arrived to her room, she was taken to walk by Physical Therapy; however, she quickly had to be brought back due to becoming lightheaded. The patient denies any complaints at this present time. She states she felt like she was going to faint, but did not experience any chest pain. No palpitations. Denies any difficulty with her breathing. The patient states she feels weak and feels like she needs to eat. She is otherwise without complaints. PAST MEDICAL HISTORY: 1. Diverticulitis. 2. Hiatal hernia. 3. Iron-deficiency anemia. 4. Hypertension. PAST SURGICAL HISTORY: 1. Bowel resection. 2. Back surgery. 3. Right hip surgery. 4. Left leg surgery. 5. Appendectomy. 6. Hysterectomy. 7. Bilateral shoulder surgery. 8. ORIF of right hip periprosthetic greater trochanter fracture. SOCIAL HISTORY: The patient denies any tobacco use, alcohol consumption, or illicit drug use. ALLERGIES: CIPRO, FENTANYL, HYDROCODONE, LEVOFLOXACIN, AND PENICILLINS. CURRENT MEDICATIONS: 1. Cetirizine. 2. Flonase. 3. Hydrochlorothiazide. 4. Motrin. 5. Lisinopril. 6. Tramadol. 7. Tylenol with Codeine. PHYSICAL EXAMINATION: GENERAL: The patient appears well developed, well nourished, and is in no acute distress. VITAL SIGNS: Temperature 97.7, pulse 78, respirations 16, O2 saturation 96% on room air, and blood pressure 118/68. HEENT: Normocephalic and atraumatic. Pupils are equal, round, and reactive to light. Sclerae without icterus. Oropharynx is clear. Oral mucosa is dry. NECK: Supple. LUNGS: Clear to auscultation bilaterally without wheezes, rales, or rhonchi. CARDIAC: Regular rate and rhythm. ABDOMEN: Soft, nontender, nondistended. Normoactive bowel sounds present. No guarding or rigidity. No renal angle tenderness. EXTREMITIES: No lower extremity edema. Peripheral pulses present and equal bilaterally. NEUROLOGIC: Alert and oriented x3. SKIN: Warm and dry. LABORATORY DATA: White count 11.1, hemoglobin 11.2, hematocrit 33.1, platelets 198, and neutrophils 92.3%. Sodium 139, potassium 4.0, BUN 20, creatinine 1.02, GFR 53, glucose 146, calcium 8.8, and magnesium 1.7. LFTs unremarkable. BNP 40.2. IMPRESSION AND PLAN: Ms. Marcano is a 74-year-old woman, who is status post open reduction and internal fixation of right periprosthetic hip fracture, who is being referred to us for medical management. Her home medications have been reconciled. Continue to monitor blood pressure. The patient had an episode of lightheadedness when getting up to mobilize with physical therapy. She feels this is due to feeling generally weak and not eating since surgery and this is being the first time that she got up since her surgery. She does have dry oral mucosa. We will initiate gentle IV hydration. The patient will go ahead and have her dinner. We will plan to have orthostatic blood pressures done in the morning. The patient is otherwise doing well without complaints. GI prophylaxis with famotidine. DVT prophylaxis with mechanical SCDs as ordered. Case discussed with attending, who agrees with plan of care as described above. Thank you for this consultation. We will continue to follow this patient with you. Job ID: [id number]
[2020-01-10] MEDS: CEFAZOLIN 2 GM in Premix Bag 1 BAG IVPB SCH (05:15)
[2020-01-10 05:26] LABS: #Lymphocytes 0.8 thou/uL (1.20-3.40); #Monocytes 1.1 thou/uL (0.11-0.59); #Neutrophils 9.5 thou/uL (1.40-6.50); %Basophils 0.3 % (0.0-1.0); %Eosinophils 0.1 % (0.0-10.0); %Monocytes 9.6 % (0.0-10.0); Hemoglobin 9.3 g/dL (12.0-16.0); Mean Corpuscular HGB CONC 35.5 g/dL (32.0-36.0); Mean Corpuscular Hemoglobin 34.3 pg (27.0-31.0); Mean Corpuscular Volume 96.7 fL (78.0-98.0); Mean Platelet Volume 9.2 fL (7.4-10.4); Platelet Count 181 thou/uL (130-400); RBC Distribution Width 11.7 % (11.5-14.5); Red Blood Cell (RBC) Count 2.72 mill/uL (4.20-5.40); White Blood Cell (WBC) Count 11.4 thou/uL (4.8-10.8)
[2020-01-10 05:48] LABS: ALT (SGPT) 13 U/L (8-55); AST (SGOT) 28 U/L (5-34); Albumin 3.5 g/dL (3.4-4.8); Alkaline Phosphatase 50 U/L (40-110); Anion Gap 10 mmol/L (10-20); BUN (Urea Nitrogen) 21 mg/dL (9.8-20.1); Bilirubin, Total 0.4 mg/dL (0.2-1.2); Calc. Creatinine Clearance 56 mL/min (70-130); Calcium 8.6 mg/dL (7.8-10.44); Carbon Dioxide 25 mmol/L (23-31); Chloride 104 mmol/L (98-107); Estimated GFR-MDRD 53; Glucose 112 mg/dL (83-110); Potassium 3.9 mmol/L (3.5-5.1); Protein, Total 5.5 g/dL (6.0-8.3); Sodium 135 mmol/L (136-145)
[2020-01-10] MEDS: Senokot S 8.6-50 MG TAB PO SCH ×2 (08:22→20:14)
[2020-01-10] MEDS: Ferrous Gluconate 324 MG TAB PO SCH ×2 (08:23→20:17)
[2020-01-10] MEDS: Multivitamin W/ Minerals 1 TAB PO SCH (08:23)
[2020-01-10] MEDS: Lisinopril 10 MG TAB PO SCH ×2 (08:23→20:15)
[2020-01-10] MEDS: Aspirin 81 mg Enteric Coated Tablet PO SCH ×2 (08:23→20:14)
[2020-01-10] MEDS: Hydrochlorothiazide 25 MG TAB PO SCH (08:23)
[2020-01-10] MEDS: Famotidine/PF 20 mg/2ml Vial SLOW IVP SCH (08:59)
[2020-01-10] MEDS: diphenhydrAMINE 50 MG/ML VIAL IVP PRN ×3 (08:59→16:49)
[2020-01-10] MEDS ORDERED: Simethicone Chewable 80 MG TAB PO PRN (09:16)
[2020-01-10] MEDS: Fluticasone Propionate Nasal Spray 16 gm Bottle NASAL SCH (10:07)
--- NOTE | 2020-01-10 11:09 | PRG ---
DATE OF SERVICE: 01/10/2020 SUBJECTIVE: Genna is a 74-year-old white female, who is postop day 1 from open reduction and internal fixation of the right proximal femoral greater trochanter fracture. She is doing relatively well today. She was able to stand and ambulate approximately 6 to 10 feet yesterday evening. She has not walked yet this morning. She admits to discomfort at the operative site as expected. OBJECTIVE: VITAL SIGNS: Temperature 98.6, pulse 77, blood pressure 129/70, respiratory rate 16 and nonlabored, O2 saturations 100% on room air. GENERAL: She is alert and oriented to person, place, time, and situation, responsive and appropriate with examiner, grossly nonfocal. Incision, she has a little bit of pink strike through, but none through the tape, there is light scant drainage. She is neurovascularly intact in the right lower extremity. No malrotation or shortening. LABORATORY DATA: Hemoglobin and hematocrit are 9.3 and 26.3. IMPRESSION: A 74-year-old female, postoperative day 1 right hip greater trochanteric open reduction and internal fixation. PLAN: Continue current care. Follow hemoglobin. Consider discharge either tomorrow or Wednesday. Job ID: [id number]
[2020-01-10] MEDS: Ketorolac Tromethamine 30 MG/ML VIAL IVP SCH ×3 (12:08→23:39)
[2020-01-10] MEDS: Bupivacaine 10 ML in Sodium Chloride 0.9% 90 ML IM SCH (12:08)
[2020-01-10] MEDS: Famotidine 20 MG TAB PO SCH (20:15)
[2020-01-10] MEDS: HYDROcodone/Acetaminophen 5/325 mg Tablet PO PRN (20:54)
[2020-01-10] MEDS: diphenhydrAMINE 25 MG CAP PO PRN (20:54)
[2020-01-11] MEDS: Sodium Chloride 0.9% 1,000 ML IV SCH ×3 (03:33→23:48)
[2020-01-11 05:12] LABS: Hemoglobin 8.9 g/dL (12.0-16.0); Mean Corpuscular HGB CONC 33.1 g/dL (32.0-36.0); Mean Corpuscular Hemoglobin 32.7 pg (27.0-31.0); Mean Platelet Volume 8.8 fL (7.4-10.4); Platelet Count 161 thou/uL (130-400); RBC Distribution Width 12.1 % (11.5-14.5); Red Blood Cell (RBC) Count 2.71 mill/uL (4.20-5.40); White Blood Cell (WBC) Count 7.3 thou/uL (4.8-10.8)
[2020-01-11] MEDS: Bupivacaine 10 ML in Sodium Chloride 0.9% 90 ML IM SCH ×2 (05:39→20:55)
[2020-01-11] MEDS: Ketorolac Tromethamine 30 MG/ML VIAL IVP SCH ×4 (05:39→23:49)
[2020-01-11] MEDS: Fluticasone Propionate Nasal Spray 16 gm Bottle NASAL SCH (08:46)
[2020-01-11] MEDS: diphenhydrAMINE 25 MG CAP PO PRN ×3 (08:46→17:48)
[2020-01-11] MEDS: HYDROcodone/Acetaminophen 5/325 mg Tablet PO PRN ×3 (08:46→17:48)
[2020-01-11] MEDS: Lisinopril 10 MG TAB PO SCH ×2 (08:47→20:51)
[2020-01-11] MEDS: Multivitamin W/ Minerals 1 TAB PO SCH (08:47)
[2020-01-11] MEDS: Ferrous Gluconate 324 MG TAB PO SCH ×2 (08:47→20:55)
[2020-01-11] MEDS: Aspirin 81 mg Enteric Coated Tablet PO SCH ×2 (08:47→20:51)
[2020-01-11] MEDS: Senokot S 8.6-50 MG TAB PO SCH ×2 (08:47→20:55)
[2020-01-11] MEDS: Famotidine 20 MG TAB PO SCH ×2 (08:47→20:54)
[2020-01-11] MEDS: Hydrochlorothiazide 25 MG TAB PO SCH (08:48)
--- NOTE | 2020-01-11 13:55 | PDOC.HOSPP ---
- Subjective Encounter Date: 01/11/20 Subjective: No further episodes of dizziness. Ambulating with PT. - Objective Vital Signs & Weight: Vital Signs (12 hours) Temp Pulse Resp BP BP Pulse Ox 01/11/20 10:35 98.3 F 71 16 132/71 100 01/11/20 09:26 98.0 F 71 14 131/78 97 01/11/20 08:47 126/71 01/11/20 07:14 97 01/11/20 03:33 98.6 F 68 16 126/71 97 Weight Weight 158 lb I&O: 01/10/20 01/11/20 01/12/20 06:59 06:59 06:59 Intake Total 440 1500 Output Total 675 1020 Balance -235 -2350 Result Diagrams: 01/11/20 04:50 01/10/20 05:08 Hospitalist ROS - Medication Medications: Active Medications Generic Name Dose Route Start Last Admin Trade Name Freq PRN Reason Stop Dose Admin Hydrocodone Bitart/Acetaminophen 1 tab 01/09/20 11:15 01/10/20 16:49 [place] 5/325 PO 1 tab Q4H PRN Administration Mild Pain 1-3 Hydrocodone Bitart/Acetaminophen 2 tab 01/09/20 11:15 01/11/20 13:24 [place] 5/325 PO 2 tab Q4H PRN Administration For Moderate Pain 4-6 Aspirin 81 mg 01/09/20 21:00 01/11/20 08:47 Ecotrin PO 81 mg BID MARIANNE Administration Diphenhydramine HCl 25 mg 01/09/20 11:15 01/11/20 13:28 Benadryl PO 25 mg Q3H PRN Administration Itching Diphenhydramine HCl 25 mg 01/09/20 11:15 01/10/20 16:49 Benadryl IVP 25 mg Q3H PRN Administration Itching Famotidine 20 mg 01/10/20 21:00 01/11/20 08:47 Pepcid PO 20 mg BID MARIANNE Administration Ferrous Gluconate 324 mg 01/10/20 09:00 01/11/20 08:47 Fergon PO 324 mg BID MARIANNE Administration Fluticasone Propionate 0 gm 01/10/20 09:00 01/11/20 08:46 Flonase Nasal [place] NASAL 1 spray DAILY MARIANNE Administration Hydrochlorothiazide 12.5 mg 01/10/20 09:00 01/11/20 08:48 Hydrochlorothiazide PO 12.5 mg DAILY MARIANNE Administration Sodium Chloride 1,000 mls @ 100 mls/hr 01/09/20 11:15 01/11/20 09:58 Normal Saline 0.9% IV Not Given .Q10H MARIANNE Bupivacaine HCl 10 ml/ Sodium 100 mls @ 6 mls/hr 01/10/20 10:45 01/11/20 05: 39 Chloride IM 100 mls INF MARIANNE Administration Protocol Iron/Minerals/Multivitamins 1 tab 01/10/20 09:00 01/11/20 08:47 Theragran M PO 1 tab DAILY MARIANNE Administration Ketorolac Tromethamine 15 mg 01/10/20 12:00 01/11/20 11:34 Toradol IVP 01/12/20 00:01 15 mg Q6HR MARIANNE Administration Lisinopril 10 mg 01/09/20 21:00 01/11/20 08:47 Zestril PO 10 mg BID MARIANNE Administration Senna/Docusate Sodium 2 tab 01/10/20 09:00 01/11/20 08:47 Senokot S PO 2 tab BID MARIANNE Administration Sodium Chloride 10 ml 01/09/20 11:02 01/10/20 23:43 Flush - Normal Saline IVF 10 ml PRN PRN Administration Saline Flush - Exam General Appearance: NAD, awake alert ENT: normocephalic atraumatic Neck: supple, no JVD Heart: RRR, no murmur, no gallops, no rubs, normal peripheral pulses Respiratory: CTAB, no wheezes, no rales, no ronchi, normal chest expansion Psychiatric: normal affect, A&O x 3 Hosp A/P (1) Orthostatic dizziness Code(s): R42 - DIZZINESS AND GIDDINESS Status: Acute Plan: Resolved with hydration. Hospitalist service will sign off. Reconsult as needed.
[2020-01-12 05:39] LABS: Mean Corpuscular HGB CONC 34.2 g/dL (32.0-36.0); Mean Corpuscular Hemoglobin 33.8 pg (27.0-31.0); Mean Corpuscular Volume 98.7 fL (78.0-98.0); Mean Platelet Volume 9.4 fL (7.4-10.4); Platelet Count 163 thou/uL (130-400); RBC Distribution Width 11.8 % (11.5-14.5); Red Blood Cell (RBC) Count 2.66 mill/uL (4.20-5.40); White Blood Cell (WBC) Count 5.6 thou/uL (4.8-10.8)
[2020-01-12] MEDS: Famotidine 20 MG TAB PO SCH (08:51)
[2020-01-12] MEDS: Aspirin 81 mg Enteric Coated Tablet PO SCH (08:52)
[2020-01-12] MEDS: Fluticasone Propionate Nasal Spray 16 gm Bottle NASAL SCH (08:52)
[2020-01-12] MEDS: Multivitamin W/ Minerals 1 TAB PO SCH (08:52)
[2020-01-12] MEDS: Hydrochlorothiazide 25 MG TAB PO SCH (08:52)
[2020-01-12] MEDS: Lisinopril 10 MG TAB PO SCH (08:53)
[2020-01-12] MEDS: Senokot S 8.6-50 MG TAB PO SCH (08:54)
[2020-01-12] MEDS: Ferrous Gluconate 324 MG TAB PO SCH (08:54)
[2020-01-12] MEDS: HYDROcodone/Acetaminophen 5/325 mg Tablet PO PRN (09:12)
[2020-01-12] MEDS: diphenhydrAMINE 25 MG CAP PO PRN (09:12)
[2020-01-12] MEDS: Sodium Chloride 0.9% 1,000 ML IV SCH (10:51)
[2020-01-12 11:50] VITALS: BP 147/77; TEMP 98.7
== END 2020-01-12 16:12 | disposition home or self-care (01) | DRG 481 ==
LOC: SURG A 01-09 08:28
PROVIDERS: ADMIT Orthopaedic Surgery; ATTEND Orthopaedic Surgery
PROC: 0QS604Z Reposition Right Upper Femur with Internal Fixation Device, Open Approach (ICD-10-PCS; principal; 2020-01-09)
DX: S72.001K Fracture of unspecified part of neck of right femur, subsequent encounter for closed fracture with nonunion (principal); M97.01XA Periprosthetic fracture around internal prosthetic right hip joint, initial encounter; I10 Essential (primary) hypertension; Z90.49 Acquired absence of other specified parts of digestive tract; Z90.710 Acquired absence of both cervix and uterus; Z98.890 Other specified postprocedural states; Z88.1 Allergy status to other antibiotic agents; Z88.5 Allergy status to narcotic agent; Z88.0 Allergy status to penicillin; R42 Dizziness and giddiness; M25.451 Effusion, right hip
CPT/HCPCS: 36415; 76000; 80053; 83735; 83880; 85025; 85027; 87070; 87205; 93005; 93010; C1713; J0690; J1100; J1200; J1885; J2001; J2250; J2405; J2704; J3010; J3370; J3490; Q0163; S0020; S0028

== ENCOUNTER → 2022-05-01 | Day surgery (SDC) | payer MEDICARE ==
[2022-05-01 11:21] LABS: RBC Count-Automated (BF) 6560 /cu.mm; WBC/Nucleated-Auto (BF) 25107 /cu.mm
[2022-05-01 11:27] LABS: BF Color Yellow; Body Fluid Source Synovial Fluid; Clarity Cloudy/Turbid (Clear); Tube # 1
[2022-05-01 12:33] LABS: BF Segmented Neutrophils 87 %; Cell Count Non Hematic 10 %; Lymphocytes 3 %
== END | disposition home or self-care (01) ==
LOC: RAD 07:33
PROVIDERS: ATTEND Orthopaedic Surgery
PROC: 0S993ZX Drainage of Right Hip Joint, Percutaneous Approach, Diagnostic (ICD-10-PCS; principal; 2022-05-01)
DX: M16.11 Unilateral primary osteoarthritis, right hip (principal); M79.18 Myalgia, other site; M17.11 Unilateral primary osteoarthritis, right knee; I10 Essential (primary) hypertension; Z88.0 Allergy status to penicillin; Z88.1 Allergy status to other antibiotic agents; Z88.5 Allergy status to narcotic agent; Z90.49 Acquired absence of other specified parts of digestive tract; Z96.641 Presence of right artificial hip joint
CPT/HCPCS: 20610; 77002; 85060; 87070; 87205; 89051

== ENCOUNTER 2023-06-02 11:07 | Outpatient (CLI) | payer MEDICARE ==
[2023-06-02 12:51] LABS: #Eosinphils 0.1 10x3/uL (0.0-0.5); #Monocytes 0.8 10x3/uL (0.0-1.1); #Neutrophils 5.6 10x3/uL (1.5-8.4); %Basophils 0.5 % (0.0-2.0); %Eosinophils 1.2 % (0.0-6.0); %Lymphocytes 19.1 % (18.0-47.0); %Monocytes 9.7 % (0.0-10.0); %Neutrophils 69.3 % (40.0-75.0); Hemoglobin 11.1 g/dL (12.0-15.5); Mean Corpuscular HGB CONC 31.5 g/dL (32.0-36.0); Mean Corpuscular Hemoglobin 28.5 pg (27.0-33.0); Mean Corpuscular Volume 90.3 fl (81.6-98.3); Mean Platelet Volume 11.4 fl (7.4-10.4); Platelet Count 222 10x3/uL (150-450); RBC Distribution Width 13.9 % (11.5-14.5); White Blood Cell (WBC) Count 8.1 10x3/uL (3.5-10.5)
[2023-06-02 13:11] LABS: Anion Gap 16 mmol/L (10-20); BUN (Urea Nitrogen) 23 mg/dL (9.8-20.1); Calc. Creatinine Clearance 0 mL/min (70-130); Calcium 9.5 mg/dL (7.8-10.44); Carbon Dioxide 25 mmol/L (23-31); Chloride 105 mmol/L (98-107); Estimated GFR 53; Glucose 101 mg/dL (83-110); Potassium 3.8 mmol/L (3.5-5.1); Sodium 142 mmol/L (136-145)
== END 2023-06-02 11:08 | disposition home or self-care (01) ==
LOC: LABBT 11:07
PROVIDERS: ATTEND Orthopaedic Surgery
DX: Z01.818 Encounter for other preprocedural examination (principal); T84.84XA Pain due to internal orthopedic prosthetic devices, implants and grafts, initial encounter
CPT/HCPCS: 80048; 85025; 93005; 93010

== ENCOUNTER 2023-06-03 05:51 | Day surgery (SDC) | payer MEDICARE ==
[2023-06-02 11:32] VITALS: BMI 24.7
[2023-06-03] MEDS ORDERED: Vancomycin 1 GM/200 ML (FROZEN) BAG ONE (06:18)
[2023-06-03] MEDS ORDERED: fentaNYL PF 100 MCG/2 ML SYRINGE ONE (07:07)
[2023-06-03] MEDS ORDERED: Levofloxacin 500 mg/D5W 100 ml Premix Bag ONE (07:11)
[2023-06-03] MEDS ORDERED: Ondansetron PF 4 MG/2 ML Vial ONE (07:30)
[2023-06-03] MEDS ORDERED: NEOSTIGMINE 3 MG/3 ML SYR 3 MG/3 ML SYRINGE ONE (07:30)
[2023-06-03] MEDS ORDERED: Glycopyrrolate 0.2 MG/ML 5 ML SYRINGE ONE (07:30)
[2023-06-03] MEDS ORDERED: Dexamethasone 20 MG/5 ML VIAL ONE (07:30)
[2023-06-03] MEDS ORDERED: ePHEDrine Sulfate 50 MG/10 ML VIAL ONE (07:30)
[2023-06-03] MEDS ORDERED: PROPOFOL 200 MG/20 ML VIAL ONE (07:30)
[2023-06-03] MEDS ORDERED: Rocuronium Bromide 10 MG/ML (10ML VIAL) ONE (07:30)
[2023-06-03] MEDS ORDERED: Bupivacaine/Epinephrine 0.25% 30 ML VIAL ONE (08:07)
[2023-06-03] MEDS ORDERED: Bupivacaine HCl 0.5%/Epinephrine 1:200,000/PF 30 ml Vial ONE (08:08)
[2023-06-03] MEDS ORDERED: fentaNYL 50 mcg/mL 1 mL Vial ONE ×3 (09:05→09:40)
[2023-06-03] MEDS ORDERED: HYDROcodone/Acetaminophen 5/325 mg Tablet ONE (10:51)
== END 2023-06-03 12:06 | disposition home or self-care (01) ==
LOC: SDC 05:51
PROVIDERS: ATTEND Orthopaedic Surgery
PROC: 2W5LXYZ Removal of Other Device on Right Lower Extremity (ICD-10-PCS; principal; 2023-06-03)
DX: T84.84XA Pain due to internal orthopedic prosthetic devices, implants and grafts, initial encounter (principal); S72.001K Fracture of unspecified part of neck of right femur, subsequent encounter for closed fracture with nonunion; I10 Essential (primary) hypertension; M17.11 Unilateral primary osteoarthritis, right knee; Z96.649 Presence of unspecified artificial hip joint; Z98.890 Other specified postprocedural states; Z88.1 Allergy status to other antibiotic agents; Z88.0 Allergy status to penicillin; Z88.5 Allergy status to narcotic agent; Z79.899 Other long term (current) drug therapy; Y83.1 Surgical operation with implant of artificial internal device as the cause of abnormal reaction of the patient, or of later complication, without mention of misadventure at the time of the procedure
CPT/HCPCS: 20680; 73552; 87070; 87075; 87077; 87205; J3010; J3370; 87186; J1100; J1956; J2405; J2704

== ENCOUNTER 2023-09-16 12:21 | Outpatient (CLI) | payer MEDICARE | END 2023-09-16 12:22 | disposition home or self-care (01) | LOC: BICMRI 12:21 | PROVIDERS: ATTEND Orthopaedic Surgery | DX: M89.8X5 Other specified disorders of bone, thigh (principal); M96.842 Postprocedural seroma of a musculoskeletal structure following a musculoskeletal system procedure; R59.0 Localized enlarged lymph nodes; Z96.641 Presence of right artificial hip joint | CPT/HCPCS: 82565 ==

== ENCOUNTER 2023-11-04 09:09 | Outpatient (CLI) | payer MEDICARE ==
[2023-11-04 10:26] LABS: #Eosinphils 0.1 10x3/uL (0.0-0.5); #Monocytes 0.8 10x3/uL (0.0-1.1); #Neutrophils 6.4 10x3/uL (1.5-8.4); %Basophils 0.4 % (0.0-2.0); %Lymphocytes 17.2 % (18.0-47.0); %Monocytes 8.9 % (0.0-10.0); %Neutrophils 72.1 % (40.0-75.0); Hematocrit 37.8 % (34.9-44.5); Hemoglobin 12.3 g/dL (12.0-15.5); Mean Corpuscular HGB CONC 32.5 g/dL (32.0-36.0); Mean Corpuscular Hemoglobin 29.2 pg (27.0-33.0); Mean Corpuscular Volume 89.8 fl (81.6-98.3); Mean Platelet Volume 10.8 fl (7.4-10.4); Platelet Count 302 10x3/uL (150-450); Red Blood Cell (RBC) Count 4.21 10x6/uL (3.90-5.03); White Blood Cell (WBC) Count 8.9 10x3/uL (3.5-10.5)
[2023-11-04 10:50] LABS: INR-International Normal Ratio 0.9; Prothrombin Time 10.2 sec (9.5-12.1)
[2023-11-04 10:57] LABS: Anion Gap 16 mmol/L (10-20); BUN (Urea Nitrogen) 15 mg/dL (9.8-20.1); Calc. Creatinine Clearance 0 mL/min (70-130); Calcium 9.8 mg/dL (7.8-10.44); Carbon Dioxide 25 mmol/L (23-31); Chloride 101 mmol/L (98-107); Estimated GFR 71; Glucose 104 mg/dL (83-110); Potassium 3.7 mmol/L (3.5-5.1); Sodium 138 mmol/L (136-145)
== END 2023-11-04 09:10 | disposition home or self-care (01) ==
LOC: LABBT 09:09
PROVIDERS: ATTEND Orthopaedic Surgery
DX: Z01.818 Encounter for other preprocedural examination (principal); T84.018A Broken internal joint prosthesis, other site, initial encounter
CPT/HCPCS: 80048; 85025; 85610; 87081; 93005; 93010

== ENCOUNTER 2023-11-30 15:18 | Emergency (ER) | payer MEDICARE ==
[2023-11-30 16:22] LABS: #Basophils 0.1 thou/uL (0.0-0.2); #Eosinphils 0.7 thou/uL (0.0-0.7); #Monocytes 0.8 thou/uL (0.11-0.59); #Neutrophils 4.1 thou/uL (1.40-6.50); %Basophils 0.7 % (0.0-1.0); %Eosinophils 9.5 % (0.0-10.0); %Lymphocytes 19.3 % (21.0-51.0); %Monocytes 11.5 % (0.0-10.0); %Neutrophils 58.4 % (42.0-75.0); Hematocrit 30.1 % (36.0-47.0); Hemoglobin 9.6 g/dL (12.0-16.0); Mean Corpuscular HGB CONC 31.9 g/dL (32.0-36.0); Mean Corpuscular Hemoglobin 29.6 pg (27.0-31.0); Mean Corpuscular Volume 92.9 fl (78.0-98.0); Mean Platelet Volume 9.4 fL (7.4-10.4); Platelet Count 437 10x3/uL (130-400); RBC Distribution Width 16.3 % (11.5-14.5); Red Blood Cell (RBC) Count 3.24 mill/uL (4.20-5.40)
[2023-11-30 16:36] LABS: Prothrombin Time 13.6 sec (12.0-14.7)
[2023-11-30 16:37] LABS: PTT 28.3 sec (22.9-36.1)
[2023-11-30 16:48] LABS: Vancomycin, Trough 13.3 ug/mL
[2023-11-30 16:49] LABS: ALT (SGPT) 21 U/L (8-55); AST (SGOT) 16 U/L (5-34); Albumin 3.7 g/dL (3.4-4.8); Alkaline Phosphatase 96 U/L (40-110); Anion Gap 13 mmol/L (10-20); BUN (Urea Nitrogen) 14 mg/dL (9.8-20.1); Bilirubin, Total Less than 0.2 mg/dL (0.2-1.2); Calc. Creatinine Clearance 0 mL/min (70-130); Calcium 9.4 mg/dL (7.8-10.44); Carbon Dioxide 28 mmol/L (23-31); Chloride 102 mmol/L (98-107); Estimated GFR 63; Globulin 2.6 g/dL (2.4-3.5); Glucose 81 mg/dL (83-110); Potassium 3.6 mmol/L (3.5-5.1); Protein, Total 6.3 g/dL (5.8-8.1); Sodium 139 mmol/L (136-145)
[2023-11-30] MEDS ORDERED: Sterile Water 10 ML VIAL IVP SCH (17:00)
[2023-11-30] MEDS ORDERED: Activase 2 MG VIAL CATH SCH (17:00)
== END 2023-11-30 18:27 | disposition home or self-care (01) ==
LOC: ERS 15:18
DX: T82.898A Other specified complication of vascular prosthetic devices, implants and grafts, initial encounter (principal); I10 Essential (primary) hypertension; Z79.899 Other long term (current) drug therapy
CPT/HCPCS: 80053; 80202; 85025; 85610; 85730; 86140; 96374; 99283; J2997; 36415

== ENCOUNTER 2023-12-01 08:33 | Outpatient (CLI) | payer MEDICARE ==
[2023-12-01] MEDS ORDERED: Iopamidol 100 ML FS ONE (08:54)
[2023-12-01] MEDS ORDERED: Heparin 1,000 UNITS/ML VIAL ONE (09:58)
[2023-12-01] MEDS ORDERED: Sodium Bicarbonate 2.5 MEQ/5 ML SDV ONE (09:58)
[2023-12-01] MEDS ORDERED: Lidocaine 1% PF 5 ML VIAL ONE (09:58)
== END 2023-12-01 08:34 | disposition home or self-care (01) ==
LOC: RAD 08:33
PROVIDERS: ATTEND Pediatrics
PROC: 05HY33Z Insertion of Infusion Device into Upper Vein, Percutaneous Approach (ICD-10-PCS; principal; 2023-12-01)
DX: T80.219A Unspecified infection due to central venous catheter, initial encounter (principal); Z88.0 Allergy status to penicillin; Y83.1 Surgical operation with implant of artificial internal device as the cause of abnormal reaction of the patient, or of later complication, without mention of misadventure at the time of the procedure
CPT/HCPCS: 36569; J1644; Q9967